=== PATIENT | female | born 1970 | race African-American/Black ===

== ENCOUNTER 2017-07-20 02:43 | Observation (INO) | payer SELFPAY ==
[2017-07-20 03:12] LABS: Pregnancy Test - Urine (BHCG) Negative (Negative); Pregu Control Background? CLEAR/WHITE (CLR/WHITE); Pregu Control Bar Appear? YES (CONTROL BAR); Specific Gravity 1.005 (1.002-1.036)
[2017-07-20 03:21] LABS: Amphetamine Not Detected (NotDetected); Barbiturates Screen Not Detected (NotDetected); Benzodiazepine Screen Not Detected (NotDetected); Cocaine Metabolite Screen Detected (NotDetected); Medtox Control Line Valid? VALID (VALID); Medtox Reader # READER 4; Methadone Not Detected (NotDetected); Methamphetamine Not Detected (NotDetected); Opiate Screen Not Detected (NotDetected); Oxycodone Screen Not Detected (NotDetected); Phencyclidine (PCP) Not Detected (NotDetected); THC/Cannabinoid Screen Not Detected (NotDetected); Tricyclic Screen Not Detected (NotDetected)
[2017-07-20 03:21] LABS: #Eosinphils 0.1 thou/uL (0.0-0.7); #Monocytes 0.5 thou/uL (0.11-0.59); #Neutrophils 3.1 thou/uL (1.40-6.50); %Basophils 0.8 % (0.0-1.0); %Eosinophils 1.5 % (0.0-10.0); %Lymphocytes 34.9 % (21.0-51.0); %Monocytes 8.2 % (0.0-10.0); %Neutrophils 54.6 % (42.0-75.0); Hemoglobin 12.8 g/dL (12.0-16.0); Mean Corpuscular HGB CONC 34.5 g/dL (32.0-36.0); Mean Corpuscular Hemoglobin 34.5 pg (27.0-31.0); Mean Platelet Volume 6.9 fL (7.4-10.4); Platelet Count 264 thou/uL (130-400); RBC Distribution Width 11.9 % (11.5-14.5); White Blood Cell (WBC) Count 5.6 thou/uL (4.8-10.8)
[2017-07-20 03:24] LABS: Bilirubin Negative (Negative); Blood, Urine Negative (Negative); Clarity CLEAR (Clear); Glucose, Urine (Dipstick) Negative (Negative); Leukocyte Negative (Negative); Nitrite Negative (Negative); Protein, Urine (Dipstick) Negative (Neg-Trace); Urobilinogen 0.2 mg/dL (0.2-1.0); pH, Urine 5.5 (5.0-9.0)
[2017-07-20 03:41] LABS: Acetaminophen Less than 6.0 mcg/mL (10.0-30.0); Alcohol 286 mg/dL (Less than 10); Salicylate Less than 8.0 mg/dL (15.0-30.0)
[2017-07-20 03:42] LABS: ALT (SGPT) 12 U/L (8-55); AST (SGOT) 30 U/L (5-34); Albumin 4.2 g/dL (3.5-5.0); Alkaline Phosphatase 80 U/L (40-150); Anion Gap 18 mmol/L (10-20); BUN (Urea Nitrogen) 9 mg/dL (7.0-18.7); Bilirubin, Total 0.2 mg/dL (0.2-1.2); CK (CPK) 96 U/L (29-168); Calc. Creatinine Clearance 0 mL/min (70-130); Carbon Dioxide 21 mmol/L (22-29); Chloride 106 mmol/L (98-107); Estimated GFR-MDRD Greater than 90; Globulin 4.9 g/dL (2.4-3.5); Glucose 61 mg/dL (70-105); Potassium 4.6 mmol/L (3.5-5.1); Protein, Total 9.1 g/dL (6.0-8.3); Sodium 140 mmol/L (136-145)
[2017-07-20 03:45] LABS: CKMB 0.8 ng/mL (0-6.6); Troponin I Less than 0.010 ng/mL (< 0.028)
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
[2017-07-20] MEDS ORDERED: Ondansetron ODT 4 MG TAB PO PRN (07:43)
[2017-07-20] MEDS ORDERED: Acetaminophen 325 MG TAB PO PRN (07:43)
[2017-07-20] MEDS ORDERED: Ondansetron HCl/PF 4 MG/2 ML Vial IVP PRN (07:43)
[2017-07-20] MEDS ORDERED: Milk Of Magnesia 30 ML UDCUP PO PRN (07:57)
[2017-07-20] MEDS ORDERED: Mag-Al 1200 mg/1200 mg/30 ML UDCUP PO PRN (07:57)
[2017-07-20 08:14] VITALS: BMI 15.7
[2017-07-20] MEDS: Nicotine 14 MG PATCH TD SCH (09:21)
[2017-07-20] MEDS: Acetaminophen 325 MG TAB PO PRN ×2 (09:21→20:38)
[2017-07-20] MEDS ORDERED: FLU VACC QS2017-18 36 mo. & older 0.5 ML SYRINGE IM ONE (13:15)
--- NOTE | 2017-07-20 17:17 | PDOC.EVN ---
Event Note - Event Note Event Note: Chart reviewed. Pt seen. No episodes of bradycardia. Medically cleared, awaiting [facility] eval.
[2017-07-21] MEDS: Nicotine 14 MG PATCH TD SCH (08:14)
--- NOTE | 2017-07-21 13:08 | PDOC.PN ---
- Subjective Encounter Start Date: 07/21/17 Encounter Start Time: 07:20 Pt seen for followup re: overdose. denies chest pain, shortness of breath. - Objective Resuscitation Status: Resuscitation Status FULL:Full Resuscitation MAR Reviewed: Yes Vital Signs & Weight: Vital Signs (12 hours) Temp Pulse Resp BP BP Pulse Ox 07/21/17 12:00 98.5 F 88 14 109/73 96 07/21/17 08:10 98 F 77 12 116/71 97 07/21/17 03:36 98 F 77 12 118/85 97 Weight Admit Weight 97 lb 11.2 oz Weight 97 lb 11.2 oz I&O: 07/20/17 07/21/17 07/22/17 06:59 06:59 06:59 Intake Total 360 Balance 360 Result Diagrams: 07/20/17 03:09 07/20/17 03:09 EKG Reviewed by me: Yes (Tele: NSR) Phys Exam - Physical Examination Constitutional: NAD HEENT: moist MMs L eye blindness Neck: supple Respiratory: clear to auscultation bilateral Cardiovascular: RRR Gastrointestinal: soft Neurological: moves all 4 limbs Psychiatric: normal affect Skin: no rash Dx/Plan (1) Overdose Code(s): T50.901A - POISONING BY UNSP DRUG/MEDS/BIOL SUBST, ACCIDENTAL, INIT Status: Acute (2) Suicide attempt Status: Acute (3) HTN (hypertension) Code(s): I10 - ESSENTIAL (PRIMARY) HYPERTENSION Status: Chronic (4) Chronic bronchitis Code(s): J42 - UNSPECIFIED CHRONIC BRONCHITIS Status: Chronic - Plan * . Pt awaiting bed for Inpt psychiatry. Monitor vital signs, titrate antihypertensives as needed. Review of Systems - Review of Systems Respiratory: negative: Cough, Dry, Shortness of Breath, Hemoptysis, SOB with Excertion, Pleuritic Pain, Sputum, Wheezing Cardiovascular: negative: chest pain, palpitations, orthopnea, paroxysmal nocturnal dyspnea, edema, light headedness - Medications/Allergies Allergies/Adverse Reactions: Allergies Allergy/AdvReac Type Severity Reaction Status Date / Time No Known Allergies Allergy Unverified 07/20/17 07:43 Medications: Current Medications Acetaminophen (Tylenol) 650 mg PO Q4H PRN PRN Reason: Headache/Fever or Pain Last Admin: 07/20/17 20:38 Dose: 650 mg Al Hydroxide/Mg Hydroxide (Maalox) 30 ml PO Q6H PRN PRN Reason: Heartburn or Indigestion Magnesium Hydroxide (Milk Of Magnesium) 30 ml PO DAILYPRN PRN PRN Reason: Constipation Nicotine (Nicoderm Patch) 14 mg TD Q24HR [facility] Last Admin: 07/21/17 08:14 Dose: 14 mg Sodium Chloride (Flush - Normal Saline) 10 ml IVF Q12HR [facility] Last Admin: 07/21/17 08:14 Dose: 10 ml Sodium Chloride (Flush - Normal Saline) 10 ml IVF PRN PRN PRN Reason: Saline Flush
[2017-07-21] MEDS: Acetaminophen 325 MG TAB PO PRN (22:35)
[2017-07-22] MEDS: Acetaminophen 325 MG TAB PO PRN (06:21)
[2017-07-22] MEDS: Nicotine 14 MG PATCH TD SCH (09:34)
--- NOTE | 2017-07-22 13:27 | PDOC.PN ---
- Subjective Encounter Start Date: 07/22/17 Encounter Start Time: 13:25 Pt seen for followup re: overdose. No complaints. - Objective Resuscitation Status: Resuscitation Status FULL:Full Resuscitation Vital Signs & Weight: Vital Signs (12 hours) Temp Pulse Resp BP Pulse Ox 07/22/17 11:00 98.1 F 77 16 111/79 99 07/22/17 08:00 98.2 F 80 18 07/22/17 04:00 98.2 F 80 18 96/57 L 95 Weight Admit Weight 97 lb 11.2 oz Weight 97 lb I&O: 07/21/17 07/22/17 07/23/17 06:59 06:59 06:59 Intake Total 360 1560 240 Output Total 400 Balance 360 1160 240 Result Diagrams: 07/20/17 03:09 07/20/17 03:09 Phys Exam - Physical Examination Constitutional: NAD HEENT: moist MMs R eye blindness Neck: supple Respiratory: clear to auscultation bilateral Cardiovascular: RRR Gastrointestinal: soft Neurological: moves all 4 limbs Psychiatric: normal affect Dx/Plan (1) Overdose Code(s): T50.901A - POISONING BY UNSP DRUG/MEDS/BIOL SUBST, ACCIDENTAL, INIT Status: Acute (2) Suicide attempt Status: Acute (3) HTN (hypertension) Code(s): I10 - ESSENTIAL (PRIMARY) HYPERTENSION Status: Chronic (4) Chronic bronchitis Code(s): J42 - UNSPECIFIED CHRONIC BRONCHITIS Status: Chronic - Plan * . Awaiting bed for Inpt psychiatry. Review of Systems - Review of Systems Respiratory: negative: Cough, Dry, Shortness of Breath, Hemoptysis, SOB with Excertion, Pleuritic Pain, Sputum, Wheezing Cardiovascular: negative: chest pain, palpitations, orthopnea, paroxysmal nocturnal dyspnea, edema, light headedness - Medications/Allergies Allergies/Adverse Reactions: Allergies Allergy/AdvReac Type Severity Reaction Status Date / Time No Known Allergies Allergy Unverified 07/20/17 07:43 Medications: Current Medications Acetaminophen (Tylenol) 650 mg PO Q4H PRN PRN Reason: Headache/Fever or Pain Last Admin: 07/22/17 06:21 Dose: 650 mg Al Hydroxide/Mg Hydroxide (Maalox) 30 ml PO Q6H PRN PRN Reason: Heartburn or Indigestion Magnesium Hydroxide (Milk Of Magnesium) 30 ml PO DAILYPRN PRN PRN Reason: Constipation Nicotine (Nicoderm Patch) 14 mg TD Q24HR [facility] Last Admin: 07/22/17 09:34 Dose: 14 mg Sodium Chloride (Flush - Normal Saline) 10 ml IVF Q12HR [facility] Last Admin: 07/22/17 09:37 Dose: Not Given Sodium Chloride (Flush - Normal Saline) 10 ml IVF PRN PRN PRN Reason: Saline Flush
[2017-07-22 16:59] VITALS: BP 135/86; TEMP 97.6
--- NOTE | 2017-07-22 19:19 | DIS ---
PRIMARY CARE PHYSICIAN: Unknown. DATE OF ADMISSION: 07/20/2017 DATE OF DISCHARGE: 07/22/2017 DISCHARGE DIAGNOSES: 1. Overdose. 2. Suicide attempt. CONDITION OF PATIENT ON THE DAY OF DISCHARGE: Stable. I assessed Ms. Bobby on the day of discharge. Please refer to my daily progress note for further information regarding uruh-un-ifci encounter. HOSPITAL COURSE: Ms. Bobby is a pleasant 47-year-old lady who was admitted to [facility] on 07/20/2017 following overdose on calcium channel blockers and amoxicillin as part of agustin cide attempt. She was monitored on telemetry. She continued to be stable. She was medically cleare d. She was subsequently seen by [facility]. She has been accepted for inpatient psychiatric therapy at [facility]. She is being discharged in a stable condition. DISCHARGE DESTINATION: [facility].
--- NOTE | 2017-08-05 18:19 | EKG ---
Test Reason : OVERDOSE Blood Pressure : / mmHG Vent. Rate : 102 BPM Atrial Rate : 102 BPM P-R Int : 204 ms QRS Dur : 072 ms QT Int : 340 ms P-R-T Axes : 075 062 072 degrees QTc Int : 443 ms Sinus tachycardia Otherwise normal ECG Confirmed by ZHANE LAM ([id number]), newspaper editor managing SEFERINO CRUZ ([id number]) on 08/05/2017 6:18:44 PM Referred By: Confirmed By:ZHANE LAM
== END 2017-07-22 19:30 ==
LOC: ERS 02:43 → ERHOLD 04:30 → INTOOBSV 04:30 → 2NO 07:51 → T4-B 07-22 07:51
PROVIDERS: ADMIT Internal Medicine; ATTEND Internal Medicine
DX: T46.1X2A Poisoning by calcium-channel blockers, intentional self-harm, initial encounter (principal); T36.0X2A Poisoning by penicillins, intentional self-harm, initial encounter; R42 Dizziness and giddiness; J42 Unspecified chronic bronchitis; I10 Essential (primary) hypertension; F17.210 Nicotine dependence, cigarettes, uncomplicated; Z90.01 Acquired absence of eye; Z79.2 Long term (current) use of antibiotics; Z79.899 Other long term (current) drug therapy
CPT/HCPCS: 36415; 80053; 80306; 80307; 81003; 81025; 82553; 84443; 84484; 85025; 90471; 90682; 93005; 96360; 96361; 99406; A4216; G0008; G0378; Q2036

== ENCOUNTER 2017-09-26 15:04 | Observation (INO) | payer SELFPAY ==
[2017-09-26] MEDS ORDERED: Morphine 4 MG/ML VIAL ONE ×3 (16:06→19:14)
[2017-09-26] MEDS ORDERED: Lidocaine 1% PF 5 ML VIAL ONE (16:09)
[2017-09-26] MEDS ORDERED: Succinylcholine Chloride 20 MG/ML 10 ml SYRINGE FS ONE (16:09)
[2017-09-26] MEDS ORDERED: PROPOFOL 200 MG/20 ML VIAL ONE (16:09)
[2017-09-26] MEDS ORDERED: CEFAZOLIN/Water 2 GM/20 ML SYRINGE SLOW IVP SCH (16:45)
--- NOTE | 2017-09-26 17:10 | RAD ---
LEFT FOREARM TWO VIEWS LEFT ELBOW FOUR VIEWS 09/26/17 HISTORY: Left forearm impalement. Left forearm and elbow pain. FINDINGS/IMPRESSION: There is a linear lucency in the proximal ulna suspicious for nondisplaced fracture. The radius is in tact. POS: [facility]
[2017-09-26] MEDS ORDERED: Adacel (T-DAP) 0.5 ML VIAL ONE (17:50)
[2017-09-26 18:10] LABS: #Lymphocytes 1.2 thou/uL (1.20-3.40); #Monocytes 0.3 thou/uL (0.11-0.59); #Neutrophils 4.5 thou/uL (1.40-6.50); %Basophils 0.2 % (0.0-1.0); %Eosinophils 0.5 % (0.0-10.0); %Lymphocytes 19.3 % (21.0-51.0); %Monocytes 5.4 % (0.0-10.0); %Neutrophils 74.6 % (42.0-75.0); Hemoglobin 12.4 g/dL (12.0-16.0); Mean Corpuscular HGB CONC 34.1 g/dL (32.0-36.0); Mean Corpuscular Hemoglobin 34.7 pg (27.0-31.0); Mean Platelet Volume 6.5 fL (7.4-10.4); Platelet Count 293 thou/uL (130-400); RBC Distribution Width 11.8 % (11.5-14.5); Red Blood Cell (RBC) Count 3.59 mill/uL (4.20-5.40); White Blood Cell (WBC) Count 6.1 thou/uL (4.8-10.8)
[2017-09-26 18:39] LABS: ALT (SGPT) 13 U/L (8-55); AST (SGOT) 25 U/L (5-34); Albumin 4.1 g/dL (3.5-5.0); Alkaline Phosphatase 67 U/L (40-150); Anion Gap 15 mmol/L (10-20); BUN (Urea Nitrogen) 6 mg/dL (7.0-18.7); Bilirubin, Total 0.2 mg/dL (0.2-1.2); Calc. Creatinine Clearance 0 mL/min (70-130); Calcium 8.6 mg/dL (7.8-10.44); Carbon Dioxide 18 mmol/L (22-29); Chloride 106 mmol/L (98-107); Estimated GFR-MDRD Greater than 90; Globulin 3.9 g/dL (2.4-3.5); Glucose 82 mg/dL (70-105); Potassium 3.8 mmol/L (3.5-5.1); Sodium 135 mmol/L (136-145)
[2017-09-26] MEDS ORDERED: Ondansetron ODT 4 MG TAB ONE (19:13)
[2017-09-26] MEDS ORDERED: Neomycin-Polymyxin 1 ML AMP ONE ×2 (19:34→21:34)
[2017-09-26] MEDS ORDERED: Fentanyl 100 MCG/2 ML VIAL ONE ×3 (20:25→22:32)
[2017-09-26] MEDS ORDERED: Promethazine HCl 25 MG/ML VIAL ONE (22:09)
[2017-09-26] MEDS ORDERED: Ondansetron HCl/PF 4 MG/2 ML Vial IVP PRN ×2 (22:12→22:42)
[2017-09-26] MEDS ORDERED: Promethazine HCl 25 MG/ML VIAL SLOW IVP PRN (22:12)
[2017-09-26] MEDS ORDERED: Promethazine HCl 25 MG/ML VIAL IM PRN (22:12)
[2017-09-26] MEDS ORDERED: Cyclobenzaprine 10 MG TAB PO PRN (22:42)
[2017-09-26] MEDS ORDERED: CEFAZOLIN 1 GM VIAL SLOW IVP SCH (22:42)
[2017-09-26] MEDS ORDERED: Dextrose 5% in Water 1,000 ML IV PRN (22:42)
[2017-09-26] MEDS ORDERED: hydrALAZINE 20 MG/ML VIAL SLOW IVP PRN (22:42)
[2017-09-26] MEDS ORDERED: Ondansetron ODT 4 MG TAB PO PRN (22:42)
[2017-09-26] MEDS ORDERED: traMADol HCl 50 MG TAB PO PRN (22:42)
[2017-09-26] MEDS ORDERED: Ibuprofen 200 MG TAB PO PRN (22:42)
[2017-09-26] MEDS ORDERED: Dextrose 50% Abboject 50 ML SYRINGE SLOW IVP PRN (22:42)
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
[2017-09-26] MEDS ORDERED: CEFAZOLIN 1 GM, Syringe 2.5 ML in Sterile Water 7.5 ML SLOW IVP SCH (23:00)
[2017-09-26] MEDS ORDERED: Famotidine 20 MG TAB PO SCH (23:00)
[2017-09-26] MEDS: Famotidine 20 MG TAB PO SCH ×2 (23:16→23:23)
[2017-09-26] MEDS: Oxazepam 10 MG CAP PO SCH (23:38)
[2017-09-26] MEDS: traMADol HCl 50 MG TAB PO PRN (23:39)
[2017-09-27] MEDS: Acetaminophen 325 MG TAB PO SCH ×5 (00:36→17:15)
[2017-09-27] MEDS: CEFAZOLIN 1 GM, Syringe 2.5 ML in Sterile Water 7.5 ML SLOW IVP SCH ×3 (00:37→17:15)
[2017-09-27] MEDS ORDERED: Acetaminophen 500 MG TAB PO SCH (01:00)
[2017-09-27] MEDS: Oxazepam 10 MG CAP PO SCH ×5 (02:01→17:15)
[2017-09-27] MEDS: Sodium Chloride 0.9% 1,000 ML IV SCH ×2 (02:02→08:51)
[2017-09-27 02:06] VITALS: BMI 17.9
[2017-09-27 04:30] LABS: #Monocytes 0.5 thou/uL (0.11-0.59); #Neutrophils 3.9 thou/uL (1.40-6.50); %Basophils 0.6 % (0.0-1.0); %Eosinophils 0.2 % (0.0-10.0); %Lymphocytes 18.6 % (21.0-51.0); %Monocytes 8.3 % (0.0-10.0); %Neutrophils 72.2 % (42.0-75.0); Hemoglobin 11.3 g/dL (12.0-16.0); Mean Corpuscular HGB CONC 34.3 g/dL (32.0-36.0); Mean Platelet Volume 7.2 fL (7.4-10.4); Platelet Count 266 thou/uL (130-400); RBC Distribution Width 11.8 % (11.5-14.5); Red Blood Cell (RBC) Count 3.22 mill/uL (4.20-5.40); White Blood Cell (WBC) Count 5.4 thou/uL (4.8-10.8)
[2017-09-27 04:42] LABS: Anion Gap 14 mmol/L (10-20); BUN (Urea Nitrogen) 5 mg/dL (7.0-18.7); Calc. Creatinine Clearance 84 mL/min (70-130); Calcium 8.4 mg/dL (7.8-10.44); Carbon Dioxide 20 mmol/L (22-29); Chloride 102 mmol/L (98-107); Estimated GFR-MDRD Greater than 90; Glucose 84 mg/dL (70-105); Potassium 3.9 mmol/L (3.5-5.1); Sodium 132 mmol/L (136-145)
--- NOTE | 2017-09-27 08:17 | RAD ---
LEFT FOREARM TWO VIEWS LEFT ELBOW FOUR VIEWS 09/26/17 HISTORY: Left forearm impalement. Left forearm and elbow pain. FINDINGS/IMPRESSION: There is a linear lucency in the proximal ulnar shaft suspicious for nondisplaced fracture. The radiu s is intact. POS: [facility]
[2017-09-27] MEDS: Famotidine 20 MG TAB PO SCH (08:34)
[2017-09-27] MEDS: traMADol HCl 50 MG TAB PO PRN (08:35)
[2017-09-27] MEDS ORDERED: traMADol HCl 50 MG TAB PO PRN (11:28)
[2017-09-27] MEDS ORDERED: traMADol HCl 50 MG TAB PO SCH (11:30)
[2017-09-27] MEDS ORDERED: Ibuprofen 200 MG TAB PO SCH (11:30)
[2017-09-27] MEDS: Ibuprofen 600 MG TAB PO SCH ×2 (12:40→17:16)
[2017-09-27] MEDS: traMADol HCl 50 MG TAB PO SCH ×2 (12:40→17:16)
[2017-09-27 16:56] VITALS: BP 140/88; TEMP 97.6
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
--- NOTE | 2017-09-28 02:40 | DIS ---
DATE OF ADMISSION: 09/26/2017 DATE OF DISCHARGE: 09/27/2017 ADMISSION DIAGNOSES: 1. Status post impalement of foreign object to left proximal forearm. 2. Acute traumatic pain. DISCHARGE DIAGNOSES: 1. Status post impalement of foreign object to left proximal forearm. 2. Acute traumatic pain. CONSULTANTS: Dr. Ac, Orthopedic Surgery. PROCEDURES: On 09/26/2017, operative intervention to her left upper extremity with Dr. Ac. HOSPITAL COURSE: Eusebia Bobby is a 47-year-old female who presented to [facility] status post impale ment of a foreign object to her left upper extremity. Per patient, she was walking in her yard when a lawnmower passing by through metal objects striking her in the left arm. She was evaluated in the emergency room and found to have a proximal ulnar fracture. She was taken to the operating room with orthopedics for repair of her fracture. After a full dose of IV antibiotics, the patient was cleare d for discharge by Orthopedic Surgery, was medically stable. She was tolerating p.o. diet, ambulatin g and pain was controlled with p.o. analgesics. DISCHARGE DISPOSITION: Home. DISCHARGE CONDITION: Good. PHYSICAL EXAMINATION: VITAL SIGNS: Temperature 97.6, pulse 63, respiration rate 14, O2 sat 100% on room air, and blood pre ssure 140/88. GENERAL: Well-developed female in no acute distress, resting in bed. PULMONARY: Normal work of breathing, symmetric rise. CARDIOVASCULAR: Regular rate and rhythm. GI: Abdomen is soft, nontender, and nondistended. MUSCULOSKELETAL: Left upper extremity dressing clean, dry, and intact. Moves all extremities x4. N eurovascularly intact distal side of her injury. NEUROLOGIC: No focal deficit noted. DISCHARGE INSTRUCTIONS: Discharge instructions were provided to the patient who vocalized her unders tanding prior to discharge. She is to keep her orthopedic dressing clean, dry, and intact. She is t o follow Orthopedic Surgery's instructions regarding her weightbearing status of her affected tien forbes. DISCHARGE MEDICATIONS: The patient may resume any home medications. She was discharged on Ultram 50 mg 1 tab p.o. q.6 hours p.r.n. for severe pain. She should continue Tylenol 1 gram q.6 hours and ib uprofen 600 mg q.8 hours. FOLLOWUP APPOINTMENTS: The patient should follow up with her primary care provider as needed. She i s to follow up with Orthopedic Surgery in approximately 14 days. She does not need to follow up with Trauma Services formally, but may call our office with any questions. This is merely a summary of t he patient's hospitalization for more in depth information; please see her medical record in its enti rety.
== END 2017-09-27 19:15 | disposition home or self-care (01) ==
LOC: ERS 15:04 → SDC/OP 19:40 → SURG A 21:26
PROVIDERS: ADMIT Surgery; ATTEND Surgery
PROC: 0PSLXZZ Reposition Left Ulna, External Approach (ICD-10-PCS; principal; 2017-09-27)
PROC: 0XQF0ZZ Repair Left Lower Arm, Open Approach (ICD-10-PCS; 2017-09-27)
DX: S52.002B Unspecified fracture of upper end of left ulna, initial encounter for open fracture type I or II (principal); I10 Essential (primary) hypertension; J44.9 Chronic obstructive pulmonary disease, unspecified; Z98.890 Other specified postprocedural states; F17.210 Nicotine dependence, cigarettes, uncomplicated
CPT/HCPCS: 36415; 80048; 80053; 85025; 90471; 90715; 96361; 96374; 96375; 96376; A4216; G0378; G0390; G8987-GO-CJ; G8988-GO-CI; J0690; J2001; J2270; J2550; J2704; J3010; Q0162

== ENCOUNTER 2025-03-21 14:03 | Outpatient (CLI) | payer OTHER | END 2025-03-21 14:04 | disposition home or self-care (01) | LOC: BICMAMMO 14:03 | PROVIDERS: ATTEND Nurse Practitioner Family | DX: Z12.31 Encounter for screening mammogram for malignant neoplasm of breast (principal) | CPT/HCPCS: 77063; 77067 ==

== ENCOUNTER 2025-05-16 14:18 | Outpatient (CLI) | payer OTHER | END 2025-05-16 14:19 | disposition home or self-care (01) | LOC: BICCT 14:18 | PROVIDERS: ATTEND Otolaryngology Plastic Surgery within the Head & Neck | DX: H71.21 Cholesteatoma of mastoid, right ear (principal); H73.891 Other specified disorders of tympanic membrane, right ear; Z87.81 Personal history of (healed) traumatic fracture | CPT/HCPCS: 70480 ==